=== PATIENT | male | born 1975 | race Caucasian/White ===

== ENCOUNTER 2023-02-03 04:35 | Day surgery (SDC) | payer OTHER ==
[2023-01-29 14:51] VITALS: BMI 39.0
[2023-02-03] MEDS ORDERED: BUPIVACAINE HCL/PF 0.5% (5MG/ML) 10 ML VIAL ONE (07:12)
[2023-02-03] MEDS ORDERED: BUPIVACAINE HCL/PF 0.5% (5MG/ML) 10 ML VIAL IJ ONE (07:37)
[2023-02-03] MEDS ORDERED: PROPOFOL 20 ML ONE ×3 (07:52→08:45)
[2023-02-03] MEDS ORDERED: SUCCINYLCHOLINE CHLORIDE 200 MG/10 ML SYRINGE ONE ×2 (07:52→08:44)
[2023-02-03] MEDS ORDERED: MIDAZOLAM HCL 2 MG/2 ML SINGLE DOSE VIAL ONE (07:52)
[2023-02-03] MEDS ORDERED: oxyCODONE HCL 5 MG TABLET PO PRN (08:27)
[2023-02-03] MEDS ORDERED: ONDANSETRON 4 MG/2 ML VIAL IVPUSH PRN (08:27)
[2023-02-03] MEDS ORDERED: LACTATED RINGERS SOLUTION 1,000 ML IV SCH (08:30)
[2023-02-03] MEDS ORDERED: LIDOCAINE HCL/PF 2% SDV 5ML VIAL ONE ×2 (08:45→10:30)
[2023-02-03] MEDS ORDERED: KETOROLAC TROMETHAMINE 30 MG/1 ML VIAL ONE (08:45)
[2023-02-03] MEDS ORDERED: DEXAMETHASONE SOD PHOSPHATE 4 MG/1 ML VIAL ONE (08:45)
[2023-02-03] MEDS ORDERED: ACETAMINOPHEN INJECTION 100 ML IVPB ONE (09:16)
[2023-02-03] MEDS ORDERED: ACETAMINOPHEN 1000 MG/100 ML BAG IVPB ONE ×2 (09:20→09:40)
[2023-02-03 09:52] VITALS: RESP 16
[2023-02-03 10:12] VITALS: TEMP 97.5
[2023-02-03 10:21] VITALS: PULSE 65
[2023-02-03] MEDS ORDERED: METOPROLOL TARTRATE 5 MG/5 ML VIAL ONE (10:30)
[2023-02-03] MEDS ORDERED: hydrALAZINE HCL 20 MG/ML VIAL ONE (10:30)
[2023-02-03] MEDS ORDERED: METOCLOPRAMIDE HCL INJECTION 10 MG/2 ML VIAL ONE (10:30)
[2023-02-03] MEDS ORDERED: ceFAZolin SODIUM 1 GM VIAL ONE (10:30)
[2023-02-03 11:16] VITALS: BP 138/85
== END 2023-02-03 11:10 | disposition home or self-care (01) ==
LOC: JASU-SURG 04:35
PROVIDERS: ATTEND Orthopaedic Surgery
PROC: 0SBC4ZZ Excision of Right Knee Joint, Percutaneous Endoscopic Approach (ICD-10-PCS; principal; 2023-02-03 08:00)
DX: S83.241A Other tear of medial meniscus, current injury, right knee, initial encounter (principal)
CPT/HCPCS: 94760